=== PATIENT | male | born 1960 | race Caucasian/White ===

== ENCOUNTER → 2017-10-10 08:51 | Outpatient (CLI) | payer OTHER, MEDICAID, SELFPAY ==
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
== END ==
PROVIDERS: PCP Family Medicine; Visit Provider Physician Assistant
DX: T24.232A Burn of second degree of left lower leg, initial encounter (principal); T21.24XD Burn of second degree of lower back, subsequent encounter; L08.9 Local infection of the skin and subcutaneous tissue, unspecified; E11.628 Type 2 diabetes mellitus with other skin complications; E11.65 Type 2 diabetes mellitus with hyperglycemia
CPT/HCPCS: 16025

== ENCOUNTER → 2017-10-17 13:01 | Outpatient (CLI) | payer OTHER, MEDICAID, SELFPAY ==
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
== END ==
PROVIDERS: PCP Family Medicine; Visit Provider Internal Medicine
DX: T24.232D Burn of second degree of left lower leg, subsequent encounter (principal)
CPT/HCPCS: 99212

== ENCOUNTER → 2018-06-22 11:41 | Outpatient (CLI) | payer OTHER, MEDICAID, SELFPAY | PROVIDERS: PCP Family Medicine; Visit Provider Internal Medicine | DX: E11.628 Type 2 diabetes mellitus with other skin complications (principal); L08.9 Local infection of the skin and subcutaneous tissue, unspecified; T21.24XD Burn of second degree of lower back, subsequent encounter; T21.22XD Burn of second degree of abdominal wall, subsequent encounter; T24.232D Burn of second degree of left lower leg, subsequent encounter | CPT/HCPCS: 16025; 87070; 87075; 87077; 87147; 87186; 87205 ==